=== PATIENT | female | born 1980 | race African-American/Black ===

== ENCOUNTER 2017-03-30 16:30 | Emergency (ER) | payer OTHER ==
[~2017-03-30] VITALS: Ht 162.6 cm; Wt 80.3 kg
[~2017-03-30 16:30] MED LIST: BACTRIM-DS1 EA ORAL; BENADRYL50 MG ORAL; CEPHALEXIN500 MG ORAL; IBUPROFEN600 MG ORAL; KEFLEX500 MG ORAL; MEDROL DOSEPAK4 MG ORAL; METHADONE HCL10 MG PO; NKM; NORCO 5-325 TA1 EACH ORAL; RANITIDINE HCL150 MG ORAL
[2017-03-30] MEDS ORDERED: AFRIN NASAL SPR30 ML NASAL (17:34)
[2017-03-30] MEDS ORDERED: PROMETHAZI6.25 MG/1 ORAL (17:34)
[2017-03-30] MEDS ORDERED: PSEUDOEPHEDRINE60 MG PO (17:34)
[2017-03-30] MEDS ORDERED: DIFLUCAN150 MG PO (17:35)
[2017-03-30 17:51] VITALS: BP 136/78
[2017-03-30 17:53] VITALS: BP 136/78
--- NOTE | 2017-03-30 20:59 | Emergency Room Report ---
History of Present Illness General Chief Complaint: Flu Like Symptoms Present Illness HPI The patient is a 36-year-old female presenting for headache, facial pain, nasal congestion, and cough for the past week. Cough produces a yellow to green sputum. She denies any sick contacts or recent travel. Pain described as a 10 out of 10 dull ache to the face and radiates upwards to the head. No known provoking or relieving factors. She denies fever or chills. She denies other symptoms including SOB, rash, dizziness Allergies: Coded Allergies: SULFA (SULFONAMIDE ANTIBIOTICS) (Unverified Allergy, Unknown, 09/08/16) Patient History Past Medical History: see triage record Pertinent Family History: none Reviewed Nursing Documentation: PMH: Agreed, PSxH: Agreed Review of Systems All Other Systems: negative except mentioned in HPI Physical Exam Vital Signs Date Time Temp Pulse Resp B/P Pulse Ox O2 Delivery O2 Flow Rate FiO2 03/30/17 16:35 98.2 98 20 136/78 100 Room Air Sp02 EP Interpretation: reviewed, normal General Appearance: no apparent distress, alert, GCS 15, non-toxic Head: normocephalic, atraumatic, other - TTP over bilat maxillary sinuses Eyes: bilateral eye PERRL, bilateral eye normal inspection ENT: no angioedema, normal voice, TMs + canals normal, moist mucus membranes, nasal congestion Neck: full range of motion, supple, supple/symm/no masses Respiratory: chest non-tender, lungs clear, normal breath sounds, no wheezing, speaking full sentences Musculoskeletal: back normal, gait/station normal, normal range of motion, non- tender Neurologic: alert, oriented x3, responsive, motor strength/tone normal, sensory intact, speech normal Psychiatric: judgement/insight normal, memory normal, mood/affect normal, no suicidal/homicidal ideation Skin: normal color, no rash, warm/dry, well hydrated Lymphatic: no adenopathy Medical Decision Making PA Attestation Dr. Sebly is my supervising physician. Patient management was discussed with my supervising physician Diagnostic Impression: Primary Impression: Vaginal yeast infection Additional Impression: Sinusitis Qualified Codes: J01.90 - Acute sinusitis, unspecified ER Course The patient is a 36-year-old female presenting for headache, facial pain, nasal congestion, and cough Differential diagnoses considered but not limited to: Acute sinusitis, pharyngitis, rhinitis, bronchitis PE: afebrile. NAD There is tenderness to palpation over bilateral maxillary sinuses as well as nasal congestion. Otherwise HEENT exam is unremarkable. No lymphadenopathy During exam, the patient stated that she has vaginal itching as well as a white discharge. She has had yeast infection in the past and this feels the same. The patient will be discharged home with a prescription for Afrin, Sudafed, cough medication, and Diflucan. ER precautions given Last Vital Signs Date Time Temp Pulse Resp B/P Pulse Ox O2 Delivery O2 Flow Rate FiO2 03/30/17 17:53 98.2 98 20 136/78 100 Room Air Status: improved Disposition: HOME, SELF-CARE Condition: Improved Scripts Fluconazole (DIFLUCAN) 150 Mg Tablet 150 MG PO DAILY, #1 TAB Prov: ASHLEY CHAVIS P.A. 03/30/17 Promethazine Hcl (PROMETHAZINE HCL*) 6.25 Mg/5 Ml Syrup 5 ML ORAL Q6H, #120 ML 0 Refills Prov: ASHLEY CHAVIS P.A. 03/30/17 Pseudoephedrine Hcl* (SUDAFED*) 60 Mg Tablet 60 MG PO Q6H, #15 TAB Prov: TERZIAN,ASHLEY P.A. 03/30/17 Oxymetazoline HCl (Afrin) 15 Ml Pool 2 SPRAYS NASAL TWICE A DAY, #15 ML Prov: TERZIAN,ASHLEY P.A. 03/30/17 Patient Instructions: Vaginal Yeast Infection, Adult, Sinusitis, Adult Additional Instructions: I discussed my findings with the patient. All questions and concerns have been answered. Treatment and medication compliance have been addressed. I advised the patient that they need to follow up with PMD in 3-5 days. Return to ED if symptoms worsen, new symptoms arise, or if needed for any reason. Patient verbalized understanding of discharge instructions. ASHLEY CHAVIS Mar 30, 2017 20:59
== END 2017-03-30 17:54 | disposition home or self-care (01) ==
LOC: EMR 17:15
DX: B37.3 Candidiasis of vulva and vagina (principal); J32.9 Chronic sinusitis, unspecified; Z88.2 Allergy status to sulfonamides
CPT/HCPCS: 99284

== ENCOUNTER 2017-05-01 07:51 | Emergency (ER) | payer OTHER ==
[~2017-05-01] VITALS: Ht 162.6 cm; Wt 78.5 kg
[~2017-05-01 07:51] MED LIST changes: +AFRIN NASAL SPR30 ML NASAL; +DIFLUCAN150 MG PO; +PROMETHAZI6.25 MG/1 ORAL; +PSEUDOEPHEDRINE60 MG PO
[2017-05-01] MEDS ORDERED: ALPRAZOLAM0.25 MG ORAL (08:19)
[2017-05-01] MEDS ORDERED: IBUPROFEN600 MG ORAL (08:19)
[2017-05-01 08:21] VITALS: BP 124/76
[2017-05-01 08:34] VITALS: BP 124/76
--- NOTE | 2017-05-01 08:52 | Emergency Room Report ---
History of Present Illness General Chief Complaint: Behavioral Complaint Source: Patient Present Illness HPI 36-year-old female presents ED for evaluation. Patient states the last several weeks she's been having difficulty sleeping, feels very anxious. Patient has history of anxiety and used to take xanax in the past. Patient states she has a court appearance tomorrow which is causing her stress. Patient states is also the 1 year anniversary of her brother dying. Patient denies feeling depressed. Denies any suicidal or homicidal ideation. Denies hearing voices. No other aggravating or relieving factors. Denies any other associated symptoms Allergies: Coded Allergies: SULFA (SULFONAMIDE ANTIBIOTICS) (Unverified Allergy, Unknown, 09/08/16) Patient History Past Medical History: psych hx Past Surgical History: none Pertinent Family History: none Social History: Denies: alcohol use, drug use, smoking Last Menstrual Period: april Now: No Immunizations: UTD Reviewed Nursing Documentation: PMH: Agreed, PSxH: Agreed Nursing Documentation-PMH Past Medical History: No History, Except For History Of Psychiatric Problem: Yes - anxiety Review of Systems All Other Systems: negative except mentioned in HPI Physical Exam Vital Signs Date Time Temp Pulse Resp B/P Pulse Ox O2 Delivery O2 Flow Rate FiO2 05/01/17 07:56 98.1 110 18 121/78 100 Room Air Sp02 EP Interpretation: reviewed, normal General Appearance: no apparent distress, alert, GCS 15, non-toxic Head: normocephalic, atraumatic Eyes: bilateral eye PERRL, bilateral eye normal inspection ENT: hearing grossly normal, normal pharynx, no angioedema, normal voice Neck: full range of motion, supple/symm/no masses Respiratory: chest non-tender, lungs clear, normal breath sounds, speaking full sentences Cardiovascular #1: regular rate, rhythm, no edema Cardiovascular #2: 2+ carotid (R), 2+ carotid (L), 2+ radial (R), 2+ radial (L) , 2+ dorsalis pedis (R), 2+ dorsalis pedis (L) Gastrointestinal: normal bowel sounds, non tender, soft, non-distended, no guarding, no rebound Rectal: deferred Genitourinary: normal inspection, no CVA tenderness Musculoskeletal: back normal, gait/station normal, normal range of motion, non- tender Neurologic: alert, oriented x3, responsive, motor strength/tone normal, sensory intact, speech normal Psychiatric: judgement/insight normal, memory normal, no suicidal/homicidal ideation, no delusions, anxious Reflexes: 3+ bicep (R), 3+ bicep (L), 3+ tricep (R), 3+ tricep (L), 3+ knee (R) , 3+ knee (L) Skin: normal color, no rash, warm/dry, well hydrated Lymphatic: no adenopathy Medical Decision Making Diagnostic Impression: Primary Impression: Anxiety ER Course 36-year-old female presents ED feeling anxious. Multiple stressors drinking her anxiety Differential-depression, anxiety, psychosis, alcohol abuse Patient placed on stretcher. After initial history physical exam reveals a female in no acute distress. Physical exam is unremarkable. Patient is maintaining normal eye contact during conversation. There is no evidence of flat affect. No evidence of suicidal or homicidal ideation. I do not believe the patient is a danger to herself or others. I offered the patient option for low dose Xanax. Patient agrees to take the prescription and use as needed Diagnoses-anxiety Stable and discharged to home with prescription for Xanax. Followup with PMD. Return to ED symptoms recur or worsen Last Vital Signs Date Time Temp Pulse Resp B/P Pulse Ox O2 Delivery O2 Flow Rate FiO2 05/01/17 08:34 98.2 107 17 124/76 100 Room Air Status: improved Disposition: HOME, SELF-CARE Condition: Stable Scripts Ibuprofen* (MOTRIN*) 600 Mg Tablet 600 MG ORAL Q8H Y for For Pain, #30 TAB 0 Refills Prov: ANNABELLA ROMAN M.D. 05/01/17 Alprazolam* (XANAX*) 0.25 Mg Tablet 0.25 MG ORAL TID Y for For Anxiety, #20 TAB Prov: ANNABELLA ROMAN M.D. 05/01/17 Patient Instructions: Panic Attacks, [id number] ANNABELLA ROMAN M.D. May 01, 2017 08:52
== END 2017-05-01 08:36 | disposition home or self-care (01) ==
LOC: EMR 08:11
DX: F41.9 Anxiety disorder, unspecified (principal); Z88.2 Allergy status to sulfonamides
CPT/HCPCS: 99284

== ENCOUNTER 2017-10-23 16:42 | Emergency (ER) | payer OTHER ==
[~2017-10-23] VITALS: Ht 165.1 cm; Wt 63.5 kg
[~2017-10-23 16:42] MED LIST changes: +ALPRAZOLAM0.25 MG ORAL
[2017-10-23] MEDS ORDERED: VISTARIL50 MG ORAL (17:12)
[2017-10-23] MEDS ORDERED: PREDNISONE20 MG ORAL (17:12)
[2017-10-23] MEDS ORDERED: NAPROXEN500 M1 ORAL (17:12)
[2017-10-23] MEDS ORDERED: LORATADINE10 M2 PO (17:12)
--- NOTE | 2017-10-23 17:15 | Emergency Room Report ---
History of Present Illness General Chief Complaint: General Complaint Source: Patient, Medical Record Present Illness HPI 37 y/o female c/o URI sxs x 1 week. Assoc sxs include sore throat, nasal congestion, post nasal drip and voice hoarseness with hear pressure. Not taking medications for sxs. Denies any current n/v/f/c/d, abd pain, back pain, neck pain, photophobia, phonophobia, CP, SOB or headache. Patient also states she has anxiety. States she has a hx of anxiety from the loss of her two brothers. States that she also feels depressed and is requesting medication for her anxiety. Denies SI, HI, AH or VH. Allergies: Coded Allergies: SULFA (SULFONAMIDE ANTIBIOTICS) (Unverified Allergy, Unknown, 09/08/16) Patient History Past Medical History: see triage record Past Surgical History: none Pertinent Family History: none Last Menstrual Period: 10/18/17 Reviewed Nursing Documentation: PMH: Agreed, PSxH: Agreed Nursing Documentation-PMH Past Medical History: No History, Except For Review of Systems All Other Systems: negative except mentioned in HPI Physical Exam Vital Signs Date Time Temp Pulse Resp B/P (MAP) Pulse Ox O2 Delivery O2 Flow Rate FiO2 10/23/17 16:46 98.1 106 18 122/90 99 Room Air Sp02 EP Interpretation: reviewed, normal General Appearance: no apparent distress, alert, GCS 15, non-toxic Head: normocephalic, atraumatic Eyes: bilateral eye normal inspection, bilateral eye PERRL ENT: hearing grossly normal, normal pharynx, no angioedema, normal voice, TMs + canals normal, uvula midline, nasal congestion, other - voice hoarseness Neck: full range of motion, supple/symm/no masses Respiratory: chest non-tender, lungs clear, normal breath sounds, speaking full sentences Cardiovascular #1: regular rate, rhythm, no edema Musculoskeletal: gait/station normal Neurologic: alert, oriented x3, responsive, motor strength/tone normal, sensory intact, speech normal Psychiatric: judgement/insight normal, memory normal, mood/affect normal, no suicidal/homicidal ideation Skin: normal color, no rash, warm/dry, well hydrated Medical Decision Making PA Attestation Dr. Bear is my supervising physician with whom patient management has been discussed with. Diagnostic Impression: Primary Impression: URI with cough and congestion Additional Impressions: Laryngitis Anxiety with depression ER Course Pt. presents to the ED c/o fever / sore throat Ddx considered but not limited to viral pharyngitis bacterial pharyngitis peritonsillar abscess tonsils stone and meningitis Vital signs: are WNL, pt. is afebrile H&PE are most consistent with laryngitis. Patient also has anxiety with depression that is chronic. ORDERS: none required at this time, the diagnosis is clinical ED INTERVENTIONS: none required at this time. DISCHARGE: At this time pt. is stable for d/c to home. Will provide printed patient care instructions, and any necessary prescriptions. Care plan and follow up instructions have been discussed with the patient prior to discharge. Last Vital Signs Date Time Temp Pulse Resp B/P (MAP) Pulse Ox O2 Delivery O2 Flow Rate FiO2 10/23/17 16:46 98.1 106 18 122/90 99 Room Air Disposition: HOME, SELF-CARE Condition: Stable Scripts Naproxen* (NAPROXEN*) 500 Mg Tablet.dr 500 MG ORAL TWICE A DAY for 10 Days, #20 TAB Prov: SABRY,TAMEEM P.A. 10/23/17 Prednisone* (PREDNISONE*) 20 Mg Tablet 20 MG ORAL DAILY for 3 Days, #3 TAB 0 Refills Prov: SABRY,TAMEEM P.A. 10/23/17 Loratadine (LORATADINE) 10 Mg Tablet 10 MG PO DAILY for 14 Days, #14 TAB Prov: SABRY,TAMEEM P.A. 10/23/17 Hydroxyzine Pamoate* (VISTARIL*) 50 Mg Capsule 50 MG ORAL EVERY 6 HOURS Y for For Anxiety, #20 TAB 0 Refills Prov: SABRY,TAMEEM P.A. 10/23/17 Referrals: [facility]ERR[facility] (PCP) Additional Instructions: Take medication as directed. Advised patient to use salt water gargle PRN. Advised patient to use chloraseptic as needed for throat pain in addition to APAP Q4H. Patient advised they can take Ibuprofen and Tylenol Q6H together for fever control as well. Educated patient on rhinitis and encouraged patient to use OTC nasal decongestants, nasal irrigation / saline sprays, Educated patient on the benefits of the various OTC medications available (ie. H1 blockers, decongestants, nasal steroids, etc.). If sxs worsen or don't improve, please return sooner. Go to the ER if you develop SOB, CP, Rash, photophobia, neck pain, throat swelling occur, go to the ER immediately. Patient advised to follow up with their PCP regarding their anxiety / depression. Patient is to return if they have any homicidal or suicidal ideations. CORNELIA POLANCO Oct 23, 2017 17:15
[2017-10-23 17:29] VITALS: BP 122/90
== END 2017-10-23 17:29 | disposition home or self-care (01) ==
LOC: EMR 16:58
DX: J06.9 Acute upper respiratory infection, unspecified (principal); J04.0 Acute laryngitis; F41.8 Other specified anxiety disorders
CPT/HCPCS: 99284

== ENCOUNTER 2018-01-20 11:33 | Emergency (ER) | payer OTHER ==
[~2018-01-20] VITALS: Ht 162.6 cm; Wt 74.4 kg
[~2018-01-20 11:33] MED LIST changes: +LORATADINE10 M2 PO; +NAPROXEN500 M1 ORAL; +PREDNISONE20 MG ORAL; +VISTARIL50 MG ORAL
[2018-01-20] MEDS ORDERED: Morphine Sulfate 4mg/ml Inj IM ONE (13:15)
--- NOTE | 2018-01-20 13:19 | Emergency Room Report ---
History of Present Illness General Chief Complaint: Skin Rash/Abscess Source: Patient (Debra Walters) Present Illness HPI 37 Yo female presents to the ED c/o 07/13 in severity localized pain, swelling , and erythema of right shoulder x 2 days. denies fevers, reports chills. Patient states that she frequently gets skin abscesses she was just treated at [facility] 10 days ago for abscess of the right hand that required drainage and IV antibiotics. Patient states that she was discharged with oral clindamycin for which she still has a few. Patient states that this abscesses is in a new location and was not present during her previous visit. tetanus UTD. Pt. reports recent incarceration , and hx of drug use in the past but not currently. Denies CP, Palpitations, LOC, AMS, dizziness, Changes in Vision, Sensation, paresthesias, or a sudden severe headache. (Debra Walters) Allergies: Coded Allergies: SULFA (SULFONAMIDE ANTIBIOTICS) (Unverified Allergy, Unknown, 09/08/16) Patient History Past Medical History: see triage record Past Surgical History: none Pertinent Family History: none Last Menstrual Period: last month Now: No Immunizations: UTD Reviewed Nursing Documentation: PMH: Agreed; PSxH: Agreed (Debra Walters) Nursing Documentation-PMH Past Medical History: No History, Except For (Debra Walters) Review of Systems All Other Systems: negative except mentioned in HPI (Debra Walters) Physical Exam Vital Signs Date Time Temp Pulse Resp B/P (MAP) Pulse Ox O2 Delivery O2 Flow Rate FiO2 01/20/18 11:53 98.3 128 18 109/73 100 Room Air 98.2 Sp02 EP Interpretation: reviewed, normal General Appearance: alert, GCS 15, non-toxic, moderate distress Head: normocephalic, atraumatic ENT: hearing grossly normal, normal voice Neck: full range of motion Respiratory: lungs clear, normal breath sounds, speaking full sentences Cardiovascular #1: no edema, tachycardia Musculoskeletal: back normal, gait/station normal, inflammation - right deltoid , swelling, tender - Lateral Right shoulder/ deltoid- TTP, swelling, erythema. Pain with ROM Neurologic: alert, oriented x3, responsive, motor strength/tone normal, sensory intact, speech normal, grossly normal Psychiatric: judgement/insight normal Skin: no rash, warm/dry, well hydrated, other - erythema, increased temperature to palpation, and visible and palpable swelling noted. Lymphatic: no adenopathy (Debra Walters) Medical Decision Making PA Attestation Dr. Puri is my supervising Physician whom patient management has been discussed with. (Debra Walters) Diagnostic Impression: Primary Impression: Abscess ER Course Pt. presents to the ED c/o 07/13 in severity localized pain, swelling, and erythema of right shoulder x 2 days. denies fevers, reports chills. Patient states that she frequently gets skin abscesses she was just treated at [facility] 10 days ago for abscess of the right hand that required drainage and IV antibiotics. Patient states that she was discharged with oral clindamycin for which she still has a few. Patient states that this abscesses in a new location and was not present during her previous visit. tetanus UTD.Denies CP, Palpitations, LOC, AMS, dizziness, Changes in Vision, Sensation, paresthesias, or a sudden severe headache. Ddx considered but are not limited to cellulitis, abscess, cystic acne, necrotizing fasciitis, insect bite. Vital signs: Pt. tachycardic, Triage hr is 128, much lower now but still tachycardic pt. is afebrile H&PE are most consistent with Moderate soft tissue infection. The patient is tachycardic, she has failed outpatient oral antibiotics. ORDERS: -CBC: no wbc elevation, anemia: hgb 10.1 and low RBC -CMP: WNL , elevated glucose 161. - Lactic Acid: 1.3 -Blood Cultures: Pending -CRP: WNL -ESR: elevated at 54 -UA: Unremarkable -Urine Hcg: negative -UDS: Positive for Opiates and Amphetamines - Xray Right Shoulder 3 views: No acute fx, ST swelling noted, no dislocation. -CT Shoulder w/ contrast: "2cm fluid collection deep to fascia" Per official radiology report- Please see report for specific details. ED INTERVENTIONS: - Considered I & D however CT details fluid collection deep to the fascia and I feel this should be done by a general surgeon. -1G Vancomycin IV -Cefepime IV -NS Fluids - Morphine 4 mg x3 -Diflucan PO - Pt. request as she is being given abx DISPOSITION: PT. to be ADMITTED for Abscess. Dr. Kc will be accepting this pt. at [facility]. Labs Test 01/20/18 14:45 01/20/18 15:40 White Blood Count 7.6 K/UL (4.8-10.8) Red Blood Count 3.52 M/UL (4.20-5.40) Hemoglobin 10.6 G/DL (12.0-16.0) Hematocrit 31.4 % (37.0-47.0) Mean Corpuscular Volume 89 FL (80-99) Mean Corpuscular Hemoglobin 30.2 PG (27.0-31.0) Mean Corpuscular Hemoglobin Concent 33.8 G/DL (32.0-36.0) Red Cell Distribution Width 11.2 % (11.6-14.8) Platelet Count 351 K/UL (150-450) Mean Platelet Volume 6.0 FL (6.5-10.1) Neutrophils (%) (Auto) 70.9 % (45.0-75.0) Lymphocytes (%) (Auto) 21.7 % (20.0-45.0) Monocytes (%) (Auto) 6.3 % (1.0-10.0) Eosinophils (%) (Auto) 0.5 % (0.0-3.0) Basophils (%) (Auto) 0.5 % (0.0-2.0) Erythrocyte Sedimentation Rate 56 MM/HR (0-20) Sodium Level 139 MMOL/L (136-145) Potassium Level 3.5 MMOL/L (3.5-5.1) Chloride Level 104 MMOL/L (98-107) Carbon Dioxide Level 30 MMOL/L (21-32) Anion Gap 5 mmol/L (5-15) Blood Urea Nitrogen 7 mg/dL (7-18) Creatinine 0.5 MG/DL (0.55-1.30) Estimat Glomerular Filtration Rate > 60 mL/min (>60) Glucose Level 131 MG/DL (74-106) Lactic Acid Level 1.30 mmol/L (0.66-2.22) Calcium Level 8.5 MG/DL (8.5-10.1) Total Bilirubin 0.3 MG/DL (0.2-1.0) Aspartate Amino Transf (AST/SGOT) 28 U/L (15-37) Alanine Aminotransferase (ALT/SGPT) 41 U/L (12-78) Alkaline Phosphatase 103 U/L (46-116) Total Creatine Kinase 146 U/L (26-308) Troponin I 0.000 ng/mL (0.000-0.056) C-Reactive Protein, Quantitative < 0.4 mg/dL (0.00-0.90) Total Protein 7.0 G/DL (6.4-8.2) Albumin 3.1 G/DL (3.4-5.0) Globulin 3.9 g/dL Albumin/Globulin Ratio 0.8 (1.0-2.7) Urine Color Pale yellow Urine Appearance Clear Urine pH 8 (4.5-8.0) Urine Specific [place] 1.010 (1.005-1.035) Urine Protein Negative (NEGATIVE) Urine Glucose (UA) Negative (NEGATIVE) Urine Ketones Negative (NEGATIVE) Urine Occult Blood Negative (NEGATIVE) Urine Nitrite Negative (NEGATIVE) Urine Bilirubin Negative (NEGATIVE) Urine Urobilinogen Normal MG/DL (0.0-1.0) Urine Leukocyte Esterase Negative (NEGATIVE) Urine HCG, Qualitative Negative (NEGATIVE) Urine Opiates Screen Positive (NEGATIVE) Urine Barbiturates Screen Negative (NEGATIVE) Phencyclidine (PCP) Screen Negative (NEGATIVE) Urine Amphetamines Screen Positive (NEGATIVE) Urine Benzodiazepines Screen Negative (NEGATIVE) Urine Cocaine Screen Negative (NEGATIVE) Urine Marijuana (THC) Screen Negative (NEGATIVE) (Debra Walters P.A.) ER Course Patient discussed in detail. I agree with assessment and treatment plan. (Gonzalo Puri M.D.) EKG Diagnostic Results EP Interpretation: Dr. Selby Rate: tachycardiac - 109 Rhythm: NSR ST Segments: no acute changes ASA given to the pt in ED: No PA Scribe Text This Interpretation was scribed by MONIQUE Walters. (Debra Walters P.A.) Other X-Ray Diagnostic Results Other X-Ray Diagnostic Results : X-Ray ordered: Right Shoulder # of Views/Limited Vs Complete: 3 View Indication: Swelling EP Interpretation: Yes PA Xray: Interpretation reviewed, by supervising MD, and agrees with findings. Interpretation: no dislocation, no fractures, other - ST Swelling Impression: No acute disease Electronically Signed by: Debra Walters PA-C (Debra Walters) Other X-Ray Diagnostic Results : Electronically Signed by: Theodore documentation reviewed by me and is accurate, Gonzalo Puri MD. (Gonzalo Puri M.D.) CT/MRI/US Diagnostic Results CT/MRI/US Diagnostic Results : Imaging Test Ordered: CT Right Shoulder With COntrast. Impression "2.1 x 3.7 x 6.6 cm fluid collection along the proximal deltoid muscle, may be a hematoma or an abscess. This appears deep to the external fascial layer. Calcification in the proximal supraspinatus muscle adjacent to the scapula. 1.4 cm fluid collection within the or adjacent to the infraspinatus muscle. Numerous prominent right axillary lymph nodes, likely reactive" Per official radiology report- Please see report for specific details. (Debra Walters) Last Vital Signs Date Time Temp Pulse Resp B/P (MAP) Pulse Ox O2 Delivery O2 Flow Rate FiO2 01/20/18 11:53 98.3 128 18 109/73 100 Room Air 98.2 (Debra Walters) Status: improved (Gonzalo Puri M.D.) Disposition: ADMITTED INPATIENT Condition: Serious Debra Walters Jan 20, 2018 13:19 Gonzalo Puri M.D. Jan 21, 2018 14:48
[2018-01-20] MEDS ORDERED: Vancomycin 1.5gm/D5W 250ml 250 ML IVPB ONE (13:30)
[2018-01-20] MEDS ORDERED: Cefepime HCl 1 GM in NS 55 ML IV SCH (13:30)
[2018-01-20] MEDS ORDERED: Lidocaine 1% 10mg/ml/Epi 0.005mg/ml 30ml vial INJ ONE (13:30)
[2018-01-20] MEDS ORDERED: Morphine Sulfate 4mg/ml Inj IVP ONE ×3 (13:45→20:15)
--- NOTE | 2018-01-20 13:53 | Diagnostic Imaging Report ---
Indication: Right shoulder pain Technique: 3 views of the left shoulder Comparison: None Findings: No acute fractures or dislocations. Joint spaces are preserved. Impression: Negative
[2018-01-20 15:00] VITALS: BP 115/69
[2018-01-20 15:07] LABS: BASOPHILS % (AUTO) 0.5 % (0.0-2.0); EOSINOPHILS % (AUTO) 0.5 % (0.0-3.0); HEMATOCRIT 31.4 % (37.0-47.0); HEMOGLOBIN 10.6 G/DL (12.0-16.0); LYMPHOCYTES % (AUTO) 21.7 % (20.0-45.0); MEAN CORPUSCULAR VOLUME 89 FL (80-99); MONOCYTES % (AUTO) 6.3 % (1.0-10.0); NEUTROPHILS % (AUTO) 70.9 % (45.0-75.0); PLATELET COUNT 351 K/UL (150-450); RED BLOOD COUNT 3.52 M/UL (4.20-5.40); RED CELL DISTRIBUTION WIDTH 11.2 % (11.6-14.8); WHITE BLOOD COUNT 7.6 K/UL (4.8-10.8)
[2018-01-20 15:20] LABS: ANION GAP 5 mmol/L (5-15); BLOOD UREA NITROGEN 7 mg/dL (7-18); CALCIUM 8.5 MG/DL (8.5-10.1); CARBON DIOXIDE 30 MMOL/L (21-32); CHLORIDE 104 MMOL/L (98-107); CREATININE 0.5 MG/DL (0.55-1.30); POTASSIUM 3.5 MMOL/L (3.5-5.1); SODIUM 139 MMOL/L (136-145)
[2018-01-20 15:25] LABS: ALANINE AMINOTRANSFERASE 41 U/L (12-78); ALBUMIN 3.1 G/DL (3.4-5.0); ALBUMIN/GLOBULIN RATIO 0.8 (1.0-2.7); ALKALINE PHOSPHATASE 103 U/L (46-116); ASPARTATE AMINO TRANSFERASE 28 U/L (15-37); BILIRUBIN,TOTAL 0.3 MG/DL (0.2-1.0); CREATINE KINASE 146 U/L (26-308)
[2018-01-20 15:47] LABS: BILIRUBIN, URINE NEGATIVE (NEGATIVE); COLOR,URINE PALE YELLOW; GLUCOSE, URINE (UA) NEGATIVE (NEGATIVE); KETONES,URINE NEGATIVE (NEGATIVE); LEUKOCYTE ESTERASE ,URINE NEGATIVE (NEGATIVE); NITRITE,URINE NEGATIVE (NEGATIVE); PH,URINE 8 (4.5-8.0); PROTEIN,URINE NEGATIVE (NEGATIVE); UROBILINOGEN,URINE NORMAL MG/DL (0.0-1.0)
[2018-01-20 15:50] LABS: APPEARANCE,URINE CLEAR
[2018-01-20] MEDS ORDERED: Morphine Sulfate 4mg/ml Inj ONE (16:03)
--- NOTE | 2018-01-20 16:08 | Diagnostic Imaging Report ---
Indication: Chest pain Technique: One view of the chest Comparison: none Findings: Lungs and pleural spaces are clear. Heart size is normal Impression: No acute process
[2018-01-20 19:18] VITALS: BP 128/77
[2018-01-20 19:39] VITALS: BP 113/73
[2018-01-20] MEDS ORDERED: Fluconazole 100mg tab ORAL ONE (19:45)
[2018-01-20 21:20] VITALS: BP 124/76
--- NOTE | 2018-01-21 09:53 | Diagnostic Imaging Report ---
Indication: Pain Technique: CT right shoulder/upper extremity performed utilizing automated exposure control with intravenous contrast material. Axial and sagittal and coronal images were generated. CT dose: Total DLP 444 mGycm; CTDI vol 0.3, 0.3, 8.1, 24.3, 15.6 mGy Comparison: Correlation made to concurrent shoulder radiographs Findings: There is a rim-enhancing fluid collection overlying the proximal deltoid muscle which measures approximately 4 cm AP by 2.1 cm transverse and spans approximately 7 cm craniocaudal (series 10 image #34; series 7 image #33). This collection sits approximately 5 to 6 mm deep to the skin surface. Considerations include abscess or hematoma. This appears deep to the external fascia layer. There is some prominent right axillary lymph nodes, likely reactive in etiology. There is no acute extra or dislocation. There is a calcification within the proximal supraspinatus muscle adjacent to the scapula. Question some fluid within or adjacent to the infraspinatus muscle. Likely os acromiale. Imaged portions of the right lung clear. IMPRESSION: Rim enhancing fluid collection along the proximal deltoid muscle as above which may represent an abscess. Clinical correlation recommended. Prominent right axillary lymph nodes likely reactive in etiology. Question small calcification in the proximal supraspinatus muscle and questionable fluid within or adjacent to the infraspinatus muscle. MRI of the shoulder would provide a better evaluation. This corresponds with the [facility] preliminary report. The CT scanner at [facility] is accredited by the [employer] and the scans are performed using protocols designed to limit radiation exposure to as low as reasonably achievable to attain images of sufficient resolution adequate for diagnostic evaluation.
== END 2018-01-20 21:20 | disposition other institution (70) ==
LOC: EMR 14:16
DX: L02.413 Cutaneous abscess of right upper limb (principal); R07.9 Chest pain, unspecified; M79.89 Other specified soft tissue disorders; Z88.2 Allergy status to sulfonamides
CPT/HCPCS: 36415; 71045; 73030; 73201; 80053; 80307; 81003; 81025; 82550; 83605; 84484; 85025; 85651; 86140; 87040; 93005; 96361; 96374; 96375; 99284; J0692; J2270; J3370

== ENCOUNTER 2018-07-29 11:30 | Emergency (ER) | payer OTHER ==
[~2018-07-29] VITALS: Ht 165.1 cm; Wt 63.5 kg
--- NOTE | 2018-07-29 12:24 | Emergency Room Report ---
History of Present Illness General Chief Complaint: Vaginal Source: Patient Present Illness HPI 38-year-old female presents to the emergency department complaining of 10 out of 10 in severity itching, tenderness and erythema with warmth and several locations to multiple insect bites of the lower extremities and the left upper extremity. Patient is also stating that she has a yeast infection and is requesting treatment for this. Patient denies history of immunocompromise, exam protected intercourse, suspicion of STDs, , vaginal discharge, swollen tender lymph nodes or joint pain. Pt. denies malodor. Patient reports moderate itching down in the genital area with no lesions or d/c noted. Pt. denies fevers, chills or swollen tender lymph nodes. Denies lesions/rashes elsewhere on the body. Denies new medications or body washes or creams. Denies swelling of the lips, tongue , throat or airway. Denies wheezing, or shortness of breath. Denies recent travel, recent illness or ill contacts. denies blisters, oral lesions, or sloughing of the skin Allergies: Coded Allergies: SULFA (SULFONAMIDE ANTIBIOTICS) (Unverified Allergy, Unknown, 09/08/16) Patient History Past Medical History: see triage record Past Surgical History: none Pertinent Family History: none Last Menstrual Period: 06/23/2018 Reviewed Nursing Documentation: PMH: Agreed; PSxH: Agreed Nursing Documentation-PMH Past Medical History: No History, Except For Hx Cardiac Problems: No - left eye surgery at age 14 Hx Hypertension: No Hx Pacemaker: No Hx Asthma: No Hx COPD: No Hx Diabetes: No Hx Cancer: No Hx Gastrointestinal Problems: Yes - hepatitis C Hx Dialysis: No History Of Psychiatric Problem: Yes - PTSD Hx Neurological Problems: No Hx Cerebrovascular Accident: No Hx Seizures: No Review of Systems All Other Systems: negative except mentioned in HPI Physical Exam Vital Signs Date Time Temp Pulse Resp B/P (MAP) Pulse Ox O2 Delivery O2 Flow Rate FiO2 07/29/18 11:44 97.7 90 16 129/79 100 Room Air Sp02 EP Interpretation: reviewed, normal General Appearance: no apparent distress, alert, GCS 15, non-toxic Head: normocephalic, atraumatic ENT: hearing grossly normal, normal voice, other - no lips, tongue or throat swelling, no stridor Neck: full range of motion Respiratory: chest non-tender, lungs clear, normal breath sounds, no wheezing, speaking full sentences Cardiovascular #1: regular rate, rhythm, normal capillary refill Musculoskeletal: back normal, gait/station normal, normal range of motion, non- tender Neurologic: alert, oriented x3, responsive, motor strength/tone normal, sensory intact, speech normal, grossly normal Psychiatric: judgement/insight normal Skin: normal color, warm/dry, well hydrated, rash - multiple insect bites with localized reactions to the LE's and the left wrist. several have warmth with surrounding erythema. no blisters, vessicles or open wounds. *multiple insect bites several of which appear infected. pt. also has Macerated appearance to the external vaginal labia with mild swelling. Lymphatic: no adenopathy Medical Decision Making PA Attestation Dr. Puri is my supervising Physician whom patient management has been discussed with. Diagnostic Impression: Primary Impression: Yeast vaginitis Additional Impressions: Multiple insect bites Cellulitis Qualified Codes: L03.90 - Cellulitis, unspecified ER Course 38-year-old female presents to the emergency department complaining of 10 out of 10 in severity itching, tenderness and erythema with warmth and several locations to multiple insect bites of the lower extremities and the left upper extremity. Patient is also stating that she has a yeast infection and is requesting treatment for this. Patient denies history of immunocompromise, exam protected intercourse, suspicion of STDs, , vaginal discharge, swollen tender lymph nodes or joint pain. Pt. denies malodor. Patient reports moderate itching down in the genital area with no lesions or d/c noted. Pt. denies fevers, chills or swollen tender lymph nodes. Denies lesions/rashes elsewhere on the body. Denies new medications or body washes or creams. Denies swelling of the lips, tongue , throat or airway. Denies wheezing, or shortness of breath. Denies recent travel, recent illness or ill contacts. denies blisters, oral lesions, or sloughing of the skin Ddx considered but are not limited to cellulitis, scabies, insect bites, tic bites, spider bites, contact dermatitis, Drug reaction, allergic reaction, fungal infection, BV, lice just to name a few. Vital signs: are WNL, pt. is afebrile H&PE are most consistent with multiple insect bites several of which appear infected. pt. also suspected to have yeast vaginitis. Macerated appearance to the external vaginal labia with mild swelling. ORDERS: none required at this time, the diagnosis is clinical ED INTERVENTIONS: -Diflucan PO - Pt. also requesting a rx for Benadryl. DISCHARGE: At this time pt. is stable for d/c to home. Will provide printed patient care instructions, and any necessary prescriptions. Care plan and follow up instructions have been discussed with the patient prior to discharge. Last Vital Signs Date Time Temp Pulse Resp B/P (MAP) Pulse Ox O2 Delivery O2 Flow Rate FiO2 07/29/18 11:44 97.7 90 16 129/79 100 Room Air Disposition: HOME, SELF-CARE Condition: Stable Scripts Diphenhydramine Hcl (BENADRYL ALLERGY) 25 Mg Tablet 25 MG PO Q6HR, #20 TAB Prov: Debra Walters 07/29/18 Mupirocin* (MUPIROCIN*) 22 Gm Oint...g. 1 APPLIC TOPIC THREE TIMES A DAY, #22 GM Prov: Debra Walters 07/29/18 Fluconazole (FLUCONAZOLE) 100 Mg Tablet 100 MG ORAL DAILY for 2 Days, #2 TAB 0 Refills Prov: Debra Walters 07/29/18 Hydrocortisone (Hydrocortisone Cream 2.5%) Y Cream.appl 1 APPLIC TP BID, #22 GM Prov: Debra Walters 07/29/18 Cephalexin* (KEFLEX*) 500 Mg Capsule 500 MG ORAL EVERY 12 HOURS for 7 Days, #14 CAP 0 Refills Prov: Debra Walters 07/29/18 Referrals: NON PHYSICIAN (PCP) Patient Instructions: Cellulitis, [id number], Insect Bite, Kejk-uw-Srux, Vaginal Yeast Infection, Adult Additional Instructions: Take medications as directed. Follow up with a Primary Care Provider in 3-5 days, even if your symptoms have resolved. --Please review list of primary care clinics, if you do not already have a primary care provider Return sooner to ED if new symptoms occur, or current symptoms become worse. Do not drink alcohol, drive, or operate heavy machinery while taking Benadryl as this may cause drowsiness and impair your judgement. - Please note that this Emergency Department Report was dictated using [employer] transcriptionist technology software, occasionally this can lead to erroneous entry secondary to interpretation by the dictation equipment. Debra Walters Jul 29, 2018 12:24
[2018-07-29] MEDS ORDERED: CEPHALEXIN500 MG ORAL (12:27)
[2018-07-29] MEDS ORDERED: HYDROCORTISONE30 G2 TP (12:27)
[2018-07-29] MEDS ORDERED: FLUCONAZOLE100 MG ORAL (12:28)
[2018-07-29] MEDS ORDERED: MUPIROCIN22 GM TOPIC (12:29)
[2018-07-29] MEDS ORDERED: Fluconazole 100mg tab ORAL ONE (12:30)
[2018-07-29 12:42] VITALS: BP 129/79
[2018-07-29 12:44] VITALS: BP 129/79
[2018-07-29] MEDS ORDERED: BENADRYL ALLERG25 M1 PO (13:59)
== END 2018-07-29 12:44 | disposition home or self-care (01) ==
LOC: EMR 12:15
DX: B37.3 Candidiasis of vulva and vagina (principal); S80.869A Insect bite (nonvenomous), unspecified lower leg, initial encounter; S60.862A Insect bite (nonvenomous) of left wrist, initial encounter; L03.90 Cellulitis, unspecified; W57.XXXA Bitten or stung by nonvenomous insect and other nonvenomous arthropods, initial encounter; Y92.9 Unspecified place or not applicable; B19.20 Unspecified viral hepatitis C without hepatic coma; Z88.2 Allergy status to sulfonamides; F43.10 Post-traumatic stress disorder, unspecified
CPT/HCPCS: 99283

== ENCOUNTER 2019-02-07 09:42 | Emergency (ER) | payer OTHER ==
[~2019-02-07] VITALS: Ht 165.1 cm; Wt 72.6 kg
[~2019-02-07 09:42] MED LIST changes: +BENADRYL ALLERG25 M1 PO; +FLUCONAZOLE100 MG ORAL; +HYDROCORTISONE30 G2 TP; +MUPIROCIN22 GM TOPIC
[2019-02-07 10:10] VITALS: BP 122/64
--- NOTE | 2019-02-07 10:12 | NUR ---
ED Nurse Note: Patient walked in to ER complaining of possible yeast infection with cloudy vaginal discharge for 3 days. Patient is alert and fully oriented with steady gait. Per patient, she had dental procedure 10 days ago and was prescribed Amoxicillin. Vagina discharge started 3 days ago. Patient denied pain or redness in vaginal area but only discharge. Skin clean and intact. No cardiac or pulmonary distress noted at this time. Patient is calm and cooperative. Patient was able to walk to the bathroom and provide urine sample.
[2019-02-07] MEDS ORDERED: METROGEL-VAGINA70 G1 VAGIN (11:10)
--- NOTE | 2019-02-07 11:23 | NUR ---
ED Nurse Note: PT SITTING PEACEFULLY IN BED IN NAD. AOX4. PRESCRIPTION AND DISCHARGE PAPERWORK EXPLAINED TO PT. PT VERBALIZES UNDERSTANDING AND ALL QUESTIONS ANSWERED. PRESCRIPTION AND DISCHARGE PAPERWORK GIVEN TO PT AND ID WRISTBAND REMOVED. PT WALKED OUT OF ER WITH STEADY GAIT AND ALL BELONGINGS.
[2019-02-07 11:24] VITALS: BP 126/68
--- NOTE | 2019-02-07 14:27 | Emergency Room Report ---
History of Present Illness General Chief Complaint: Female Urogenital Problems Source: Patient Present Illness HPI Patient presents with different complaints mainly reports that she felt she was having a yeast infection because she was on antibiotics for several days for her tooth infection Denies any abdominal pain denies any pelvic pain Denies any vomiting or diarrhea Patient reports that she gets this same infection whenever she takes antibiotics Denies any vaginal discharge denies any abnormal bleeding Patient also reports that she was having some increased pain to her left shoulder intermittently Pain was worse with moving the arm upward denies any recent fall Allergies: Coded Allergies: SULFA (SULFONAMIDE ANTIBIOTICS) (Unverified Allergy, Unknown, 09/08/16) Patient History Past Medical History: see triage record Pertinent Family History: none Now: No Reviewed Nursing Documentation: PMH: Agreed; PSxH: Agreed Nursing Documentation-PMH Past Medical History: No History, Except For Hx Cardiac Problems: No - left eye surgery at age 14 Hx Hypertension: No Hx Pacemaker: No Hx Asthma: No Hx COPD: No Hx Diabetes: No Hx Cancer: No Hx Gastrointestinal Problems: Yes - hepatitis C Hx Dialysis: No Hx Neurological Problems: No Hx Cerebrovascular Accident: No Hx Seizures: No Review of Systems All Other Systems: negative except mentioned in HPI Physical Exam Vital Signs Date Time Temp Pulse Resp B/P (MAP) Pulse Ox O2 Delivery O2 Flow Rate FiO2 02/07/19 09:49 102 20 98 Room Air 02/07/19 10:10 98.2 122/64 Sp02 EP Interpretation: reviewed, normal General Appearance: well appearing, no apparent distress Head: normocephalic, atraumatic Eyes: bilateral eye PERRL, bilateral eye EOMI ENT: hearing grossly normal, normal pharynx, TMs + canals normal, uvula midline Neck: full range of motion, supple, no meningismus, no bony tend Respiratory: lungs clear, normal breath sounds, no rhonchi, no respiratory distress, no retraction, no accessory muscle use Cardiovascular #1: normal peripheral pulses, regular rate, rhythm, no edema, no gallop, no JVD, no murmur Gastrointestinal: normal bowel sounds, non tender, soft, no mass, no organomegaly, non-distended, no guarding, no hernia, no pulsatile mass, no rebound Genitourinary: no CVA tenderness Musculoskeletal: normal inspection Neurologic: oriented x3, responsive, motor strength/tone normal Psychiatric: mood/affect normal Skin: normal color, no rash, warm/dry, palpation normal Lymphatic: normal inspection, no adenopathy Medical Decision Making Diagnostic Impression: Primary Impression: Vaginal yeast infection ER Course Patient is a clinically benign soft abdominal exam Does not appear septic or toxic from the history and presentation patient has clinical diagnosis of yeast infection This is being treated And patient requires close outpatient follow-up Last Vital Signs Date Time Temp Pulse Resp B/P (MAP) Pulse Ox O2 Delivery O2 Flow Rate FiO2 02/07/19 11:24 98.3 72 18 126/68 100 Room Air Status: unchanged Disposition: HOME, SELF-CARE Condition: Stable Scripts Metronidazole* (METROGEL-VAGINAL*) 70 Gm Gel.w.appl 1 APPL VAGIN EVERY 12 HOURS for 7 Days, #70 GM Prov: Juan José Saenz DO 02/07/19 Referrals: [facility],REFERRING (PCP) [facility] [place] Patient Instructions: Vaginitis Additional Instructions: Patient is provided with the discharge instructions notified to follow up with primary doctor in the next 2-3 days otherwise return to the er with any worsening symptoms. Please note that this report is being documented using [employer] technology. This can lead to erroneous entry secondary to incorrect interpretation by the dictating instrument. Juan José Saenz DO February 07, 2019 14:27
== END 2019-02-07 11:25 | disposition home or self-care (01) ==
LOC: EMR 10:05
DX: B37.9 Candidiasis, unspecified (principal); Z88.2 Allergy status to sulfonamides; M25.512 Pain in left shoulder; Z86.19 Personal history of other infectious and parasitic diseases
CPT/HCPCS: 99282

== ENCOUNTER 2019-05-31 16:22 | Emergency (ER) | payer SELFPAY ==
[~2019-05-31] VITALS: Ht 165.1 cm; Wt 72.6 kg
[~2019-05-31 16:22] MED LIST changes: +METROGEL-VAGINA70 G1 VAGIN
--- NOTE | 2019-05-31 16:58 | NUR ---
ED Nurse Note: PT WALKED IN TO ER TODAY FROM HOME. AOX4. PT C/O VAGINAL ITCHING AND MUCOUS-LIKE DISCHARGE X 4 DAYS AGO. PT DENIES ANY PAIN OR VAGINAL BLEEDING, ITCHING, OR REDNESS. PT ALSO C/O RASH AROUND NECK X 2 DAYS AGO. PT STATES SHE USED A NEW HAIR PRODUCT AROUND THE TIME SHE NOTICED THE RASH AND BELIEVES IT MAY BE RELATED.
[2019-05-31 16:59] VITALS: BP 122/82
[2019-05-31 17:08] LABS: APPEARANCE,URINE CLEAR; BILIRUBIN, URINE NEGATIVE (NEGATIVE); GLUCOSE, URINE (UA) NEGATIVE (NEGATIVE); KETONES,URINE 1+ (NEGATIVE); LEUKOCYTE ESTERASE ,URINE 1+ (NEGATIVE); NITRITE,URINE NEGATIVE (NEGATIVE); PH,URINE 6.5 (4.5-8.0); PROTEIN,URINE NEGATIVE (NEGATIVE); UROBILINOGEN,URINE 4 MG/DL (0.0-1.0)
[2019-05-31 17:10] LABS: COLOR,URINE YELLOW
--- NOTE | 2019-05-31 17:45 | Emergency Room Report ---
History of Present Illness General Chief Complaint: Female Urogenital Problems Source: Patient Present Illness HPI 38 YO Female presents to the ED c/o 01/11 in severity dysuria with thick white vaginal d/c x 1 week. pt. reports vaginal itching as well. PT. denies abdominal pain or tenderness, She denies suspicion of STI. Denies hematuria. Denies suspicion of . Pt. also reports itchy rash on her neck x 4 days. Pt. denies fevers, chills or swollen tender lymph nodes. Denies lesions/rashes elsewhere on the body. Denies new medications or body washes or creams. Denies swelling of the lips, tongue , throat or airway. Denies wheezing, or shortness of breath. Denies recent travel, recent illness or ill contacts. denies blisters, oral lesions, or sloughing of the skin Allergies: Coded Allergies: SULFA (SULFONAMIDE ANTIBIOTICS) (Unverified Allergy, Unknown, 09/08/16) Patient History Past Medical History: see triage record Past Surgical History: none Pertinent Family History: none Last Menstrual Period: 05/10/2019 Now: No Reviewed Nursing Documentation: PMH: Agreed; PSxH: Agreed Nursing Documentation-PMH Past Medical History: No History, Except For Hx Cardiac Problems: No - left eye surgery at age 14 Hx Hypertension: No Hx Pacemaker: No Hx Asthma: No Hx COPD: No Hx Diabetes: No Hx Cancer: No Hx Gastrointestinal Problems: Yes - hepatitis C Hx Dialysis: No Hx Neurological Problems: No Hx Cerebrovascular Accident: No Hx Seizures: No Review of Systems All Other Systems: negative except mentioned in HPI Physical Exam Vital Signs Date Time Temp Pulse Resp B/P (MAP) Pulse Ox O2 Delivery O2 Flow Rate FiO2 05/31/19 16:29 98.6 97 18 119/80 (93) 100 Room Air Sp02 EP Interpretation: reviewed, normal General Appearance: no apparent distress, alert, GCS 15, non-toxic Head: normocephalic, atraumatic Eyes: bilateral eye normal inspection, bilateral eye PERRL ENT: hearing grossly normal, normal pharynx, no angioedema, normal voice Neck: full range of motion, other - red, plaques with excoriations and dry skin , no warmth, no blisters or vesicles. no stridor. Respiratory: chest non-tender, lungs clear, normal breath sounds, no rhonchi, no respiratory distress, no wheezing, speaking full sentences Cardiovascular #1: regular rate, rhythm Gastrointestinal: normal bowel sounds, non tender, soft Genitourinary: normal inspection, no CVA tenderness, deferred - pelvic and wet mount deferred. Musculoskeletal: back normal, gait/station normal, normal range of motion, non- tender Neurologic: alert, oriented x3, responsive, motor strength/tone normal, sensory intact, speech normal, grossly normal Psychiatric: judgement/insight normal Skin: rash - at the base of the neck circumfrentially there are confluet red, plaques with excoriations and dry skin, no warmth, no blisters or vesicles. no stridor. Lymphatic: no adenopathy Medical Decision Making PA Attestation Dr. Selby is my supervising Physician whom patient management has been discussed with. Diagnostic Impression: Primary Impression: Vaginal yeast infection Additional Impression: Dermatitis ER Course 38 YO Female presents to the ED c/o 01/11 in severity dysuria with thick white vaginal d/c x 1 week. pt. reports vaginal itching as well. PT. denies abdominal pain or tenderness, She denies suspicion of STI. Denies hematuria. Denies suspicion of . Pt. also reports itchy rash on her neck x 4 days. Pt. denies fevers, chills or swollen tender lymph nodes. Denies lesions/rashes elsewhere on the body. Denies new medications or body washes or creams. Denies swelling of the lips, tongue , throat or airway. Denies wheezing, or shortness of breath. Denies recent travel, recent illness or ill contacts. denies blisters, oral lesions, or sloughing of the skin. Ddx considered but are not limited to UTi , Pyelo, STI, Stone, Cystitis, vaginal laceration, BV, yeast vaginitis, Allergic reaction, contact dermatitis, eczema or viral exanthem just to name a few. Vital signs: are WNL, pt. is afebrile H& PE are most consistent with: Yeast Vaginitis - D/x Clinically pt. defers Pelvic exam. PT. also with contact dermatitis around her neck suspicion for reaction from necklace due to being circumferential at the base of the neck. No evidence of impending airway compromise or anaphylaxis. ORDERS: - UA labs are attached -- moderate mucus, otherwise most indicative of contamination: presence of equal amounts of bacteria and squamous cells, no elevation in inflammatory markers, nitrite negative. ED INTERVENTIONS: -none required at this time. -I do not identify an emergent condition at this time. With current presentation , pt. is stable for close outpatient follow up and conservative treatment. D/ w pt. to return promptly to ED with worsening or new symptoms.- Pt. verbalizes' understanding and agreement with proposed treatment plan.proposed treatment plan. DISCHARGE: At this time pt. is stable for d/c to home. Will provide printed patient care instructions, and any necessary prescriptions. Care plan and follow up instructions have been discussed with the patient prior to discharge. discussed with the patient prior to discharge. Labs Test 05/31/19 16:43 Urine Color Yellow Urine Appearance Clear Urine pH 6.5 (4.5-8.0) Urine Specific [place] 1.020 (1.005-1.035) Urine Protein Negative (NEGATIVE) Urine Glucose (UA) Negative (NEGATIVE) Urine Ketones 1+ (NEGATIVE) Urine Blood Negative (NEGATIVE) Urine Nitrite Negative (NEGATIVE) Urine Bilirubin Negative (NEGATIVE) Urine Urobilinogen 4 MG/DL (0.0-1.0) Urine Leukocyte Esterase 1+ (NEGATIVE) Urine RBC 0-2 /HPF (0 - 2) Urine WBC 2-4 /HPF (0 - 2) Urine Squamous Epithelial Cells Few /LPF (NONE/OCC) Urine Bacteria Few /HPF (NONE) Urine Mucus Many /LPF (NONE/OCC) Last Vital Signs Date Time Temp Pulse Resp B/P (MAP) Pulse Ox O2 Delivery O2 Flow Rate FiO2 05/31/19 16:59 98.4 88 16 122/82 98 Room Air Disposition: HOME, SELF-CARE Condition: Stable Scripts Hydrocortisone 2% Cream (ANTI-ITCH 2% CREAM) Y Cr 1 APPLIC TP TID, #28.3 GM Prov: Debra Walters 05/31/19 Fluconazole (FLUCONAZOLE) 100 Mg Tablet 100 MG ORAL DAILY for 4 Days, #4 TAB 0 Refills Prov: Debra Walters 05/31/19 Referrals: NOT CHOSEN IPA/,REFERRING (PCP) Patient Instructions: Contact Dermatitis, Dmso-yk-Qkka, Rash, Ctdi-ym-Tuso, Vaginal Yeast Infection, Adult Additional Instructions: Take medications as directed. Follow up with a Primary Care Provider in 3-5 days for DERMATOLOGY REFERRAL , even if your symptoms have resolved. --Please review list of primary care clinics, if you do not already have a primary care provider Return sooner to ED if new symptoms occur, or current symptoms become worse. - Please note that this Emergency Department Report was dictated using [employer]federal district law clerk technology software, occasionally this can lead to erroneous entry secondary to interpretation by the dictation equipment. Debra Walters May 31, 2019 17:45
[2019-05-31] MEDS ORDERED: ANTI-ITCH28 G1 TP (17:47)
[2019-05-31] MEDS ORDERED: FLUCONAZOLE100 MG ORAL (17:47)
--- NOTE | 2019-05-31 17:48 | NUR ---
ED Nurse Note: PT LAYING PEACEFULLY IN BED IN NAD. AOX4. PRESCRIPTIONS AND DISCHARGE PAPERWORK EXPLAINED TO PT. PT VERBALIZES UNDERSTANDING AND ALL QUESTIONS ANSWERED. PRESCRIPTIONS AND DISCHARGE PAPERWORK GIVEN TO PT AND ID WRISTBAND REMOVED. PT WALKED OUT OF ER WITH STEADY GAIT AND ALL BELONGINGS.
[2019-05-31 17:49] VITALS: BP 120/76
== END 2019-05-31 17:54 | disposition home or self-care (01) ==
LOC: EMR 17:16
DX: B37.3 Candidiasis of vulva and vagina (principal); L30.9 Dermatitis, unspecified; Z88.2 Allergy status to sulfonamides; B19.20 Unspecified viral hepatitis C without hepatic coma
CPT/HCPCS: 81003; 99282

== ENCOUNTER 2020-06-19 10:56 | Emergency (ER) | payer MEDICAID ==
[~2020-06-19] VITALS: Ht 162.6 cm; Wt 86.2 kg
[~2020-06-19 10:56] MED LIST changes: +ANTI-ITCH28 G1 TP
[2020-06-19 11:13] VITALS: BP 117/82
--- NOTE | 2020-06-19 12:07 | Emergency Room Report ---
History of Present Illness General Chief Complaint: Skin Rash/Abscess Source: Patient Present Illness Allergies: Coded Allergies: SULFA (SULFONAMIDE ANTIBIOTICS) (Unverified Allergy, Unknown, 09/08/16) COVID-19 Screening Contact w/high risk pt: No Experienced COVID-19 symptoms?: No COVID-19 Testing performed LEADITE WORKER: No Patient History Now: No Nursing Documentation-PMH Past Medical History: No History, Except For Hx Cardiac Problems: No - left eye surgery at age 14 Hx Hypertension: No Hx Pacemaker: No Hx Asthma: No Hx COPD: No Hx Diabetes: No Hx Cancer: No Hx Gastrointestinal Problems: Yes - hepatitis C Hx Dialysis: No Hx Neurological Problems: No Hx Cerebrovascular Accident: No Hx Seizures: No Physical Exam Vital Signs Date Time Temp Pulse Resp B/P (MAP) Pulse Ox O2 Delivery O2 Flow Rate FiO2 06/19/20 11:05 98.4 81 18 117/82 (94) 96 Room Air Medical Decision Making Diagnostic Impression: Primary Impression: Patient left without being seen ER Course This patient left without being seen. 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 She states she will return. Last Vital Signs Date Time Temp Pulse Resp B/P (MAP) Pulse Ox O2 Delivery O2 Flow Rate FiO2 06/19/20 11:13 98.4 18 117/82 96 Room Air 06/19/20 11:05 81 Condition: Stable Gabbi Carr DO Jun 19, 2020 12:07
--- NOTE | 2020-06-19 12:23 | Emergency Room Report ---
History of Present Illness General Chief Complaint: Skin Rash/Abscess Source: Patient Present Illness HPI This patient states that 3 days ago she was out standing in line outside waiting to go into a store and she noted that she started having itchy lesions on her arms. She states that since that time she continues to have itching. She did not see any specific insects or mosquitoes. However, she states she does have significant reactions to mosquito bites. She denies fever chills. She denies chest pain or shortness of breath. She denies cough or congestion. She has no other complaints. Allergies: Coded Allergies: SULFA (SULFONAMIDE ANTIBIOTICS) (Unverified Allergy, Unknown, 09/08/16) COVID-19 Screening Contact w/high risk pt: No Experienced COVID-19 symptoms?: No COVID-19 Testing performed RADIOLOGIST CHIEF OF BREAST IMAGING: No Patient History Past Medical History: see triage record, other - HCV Social History: Denies: smoking, alcohol use, drug use Now: No Reviewed Nursing Documentation: PMH: Agreed; PSxH: Agreed Nursing Documentation-PMH Past Medical History: No History, Except For Hx Cardiac Problems: No - left eye surgery at age 14 Hx Hypertension: No Hx Pacemaker: No Hx Asthma: No Hx COPD: No Hx Diabetes: No Hx Cancer: No Hx Gastrointestinal Problems: Yes - hepatitis C Hx Dialysis: No Hx Neurological Problems: No Hx Cerebrovascular Accident: No Hx Seizures: No Review of Systems All Other Systems: negative except mentioned in HPI Physical Exam Vital Signs Date Time Temp Pulse Resp B/P (MAP) Pulse Ox O2 Delivery O2 Flow Rate FiO2 06/19/20 11:05 98.4 81 18 117/82 (94) 96 Room Air Sp02 EP Interpretation: reviewed, normal General Appearance: no apparent distress, alert, GCS 15, non-toxic Head: normocephalic, atraumatic Eyes: bilateral eye normal inspection ENT: hearing grossly normal, no angioedema, normal voice Neck: full range of motion, supple/symm/no masses Respiratory: no respiratory distress, no retraction, no accessory muscle use, speaking full sentences Rectal: deferred Musculoskeletal: back normal, normal range of motion, gait/station normal, non- tender Neurologic: alert, motor strength/tone normal, oriented x3, sensory intact, res ponsive, speech normal Psychiatric: judgement/insight normal, memory normal, mood/affect normal, no suicidal/homicidal ideation Skin: other - 3 scattered lesions with surrounding warm/raised skin. Medical Decision Making Diagnostic Impression: Primary Impression: Insect bites and stings ER Course This patient has findings on exam consistent with a local reaction to insect bites. Likely this was secondary to mosquito bites given the location and that they occurred after the patient was outside. Regardless, there is no evidence of infection or cellulitis and I do not feel that any antibiotics are indicated. I will give the patient topical steroids. The patient has topical Benadryl that she purchased. She is instructed to use these together. At this time, I do not identify an emergency medical condition. The patient is given close return precautions and follow-up instructions. Last Vital Signs Date Time Temp Pulse Resp B/P (MAP) Pulse Ox O2 Delivery O2 Flow Rate FiO2 06/19/20 11:13 98.4 18 117/82 96 Room Air 06/19/20 11:05 81 Status: improved Disposition: HOME, SELF-CARE Condition: Improved Gabbi Carr DO Jun 19, 2020 12:23
[2020-06-19] MEDS ORDERED: TRIAMCINOLONE A15 G1 TP (12:26)
[2020-06-19] MEDS ORDERED: BENADRYL25 MG ORAL (12:26)
[2020-06-19 12:30] VITALS: BP 121/62
== END 2020-06-19 12:30 | disposition home or self-care (01) ==
LOC: EMR 11:30
DX: S40.862A Insect bite (nonvenomous) of left upper arm, initial encounter (principal); S40.861A Insect bite (nonvenomous) of right upper arm, initial encounter; W57.XXXA Bitten or stung by nonvenomous insect and other nonvenomous arthropods, initial encounter; Y92.9 Unspecified place or not applicable; Z88.2 Allergy status to sulfonamides; Z86.19 Personal history of other infectious and parasitic diseases
CPT/HCPCS: 99281